=== PATIENT | female | born 1945 | race Caucasian/White ===

== ENCOUNTER 2024-10-31 09:04 | Day surgery (SDC) | payer MEDICARE, BC ==
[2024-10-31] MEDS ORDERED: Acetaminophen/Codeine 300-30 MG Tab PO PRN (09:15)
[2024-10-31] MEDS ORDERED: Ondansetron 4 MG/2 ML SDV IVPUSH PRN (09:15)
[2024-10-31] MEDS ORDERED: Acetaminophen 325 MG Tab PO PRN (09:15)
[2024-10-31] MEDS: Proparacaine 0.5% Ophth Soln 15 ML Bottle EYELF ONE ×2 (09:24→10:26)
[2024-10-31] MEDS: Moxifloxacin 0.5% Ophth Soln 3 ML Bottle EYELF ONE (09:25)
[2024-10-31] MEDS: Povidone-Iodine 5% Sterile Ophth Soln 30 ML Bottle EYELF ONE ×2 (09:26→10:26)
[2024-10-31] MEDS: Tropicamide 1% Ophth Soln 15 ML Bottle EYELF ONE (09:27)
[2024-10-31] MEDS: Phenylephrine 10% Ophth Soln 5 ML Bot EYELF ONE (09:27)
[2024-10-31] MEDS: Timolol Maleate 0.5% Ophth Soln 5 ML Bottle EYELF ONE (09:28)
[2024-10-31] MEDS: Cataract Ophth Solution EYELF ONE (09:29)
[2024-10-31] MEDS: Sodium Chloride 0.9% 10 ML Syringe FLUSH PRN (09:30)
[2024-10-31] MEDS: Apraclonidine 0.5% Ophth Soln 5 ML Bot EYELF ONE (10:27)
[2024-10-31] MEDS: Diclofenac Sodium 0.1% Ophth Soln 5 ML Bottle EYELF ONE (10:27)
[2024-10-31] MEDS: Dexamethasone/Neomycin/Polymyxin B Ophth Oint 3.5 GM Tube EYELF ONE (10:28)
[2024-10-31] MEDS: Lidocaine 1% 30 ML SDV ONE (10:29)
[2024-10-31] MEDS: VANCOmycin 500 MG SDV EYELF ONE (10:30)
[2024-10-31 11:24] VITALS: BP 136/82; PULSE 64
== END 2024-10-31 11:30 | disposition home or self-care (01) ==
LOC: DL.SDS 09:04
PROVIDERS: ATTEND Ophthalmology
DX: H25.812 Combined forms of age-related cataract, left eye (principal); E78.5 Hyperlipidemia, unspecified
CPT/HCPCS: A9270-GY; J3370; J3490

== ENCOUNTER 2024-11-21 08:43 | Day surgery (SDC) | payer MEDICARE, BC ==
[2024-11-21] MEDS ORDERED: Midazolam 1 MG/ML 2 ML SDV IV ONE (08:44)
[2024-11-21] MEDS ORDERED: Dexamethasone 4 MG/ML SDV IV ONE (08:44)
[2024-11-21] MEDS ORDERED: Sodium Chloride 0.9% 10 ML Syringe IV ONE (08:44)
[2024-11-21] MEDS ORDERED: Acetaminophen/Codeine 300-30 MG Tab PO PRN (09:00)
[2024-11-21] MEDS ORDERED: Ondansetron 4 MG/2 ML SDV IVPUSH PRN (09:00)
[2024-11-21] MEDS ORDERED: Acetaminophen 325 MG Tab PO PRN (09:00)
[2024-11-21] MEDS: Moxifloxacin 0.5% Ophth Soln 3 ML Bottle EYERT ONE (09:05)
[2024-11-21] MEDS: Proparacaine 0.5% Ophth Soln 15 ML Bottle EYERT ONE ×2 (09:05→09:51)
[2024-11-21] MEDS: Povidone-Iodine 5% Sterile Ophth Soln 30 ML Bottle EYERT ONE ×2 (09:06→09:52)
[2024-11-21] MEDS: Phenylephrine 10% Ophth Soln 5 ML Bot EYERT PRN (09:07)
[2024-11-21] MEDS: Tropicamide 1% Ophth Soln 15 ML Bottle EYERT ONE (09:07)
[2024-11-21] MEDS: Timolol Maleate 0.5% Ophth Soln 5 ML Bottle EYERT ONE (09:08)
[2024-11-21] MEDS: Cataract Ophth Solution EYERT ONE (09:09)
[2024-11-21] MEDS: Sodium Chloride 0.9% 10 ML Syringe FLUSH PRN (09:14)
[2024-11-21] MEDS: Apraclonidine 0.5% Ophth Soln 5 ML Bot EYERT ONE (09:53)
[2024-11-21] MEDS: Diclofenac Sodium 0.1% Ophth Soln 5 ML Bottle EYERT ONE (09:54)
[2024-11-21] MEDS: Lidocaine 1% 30 ML SDV INJECT ONE (09:55)
[2024-11-21] MEDS: Dexamethasone/Neomycin/Polymyxin B Ophth Oint 3.5 GM Tube EYERT ONE (09:55)
[2024-11-21] MEDS: VANCOmycin 500 MG SDV EYERT ONE (09:56)
[2024-11-21 12:35] VITALS: PULSE 60
[2024-11-21 12:37] VITALS: BP 125/64
== END 2024-11-21 11:11 | disposition home or self-care (01) ==
LOC: DL.SDS 08:43
PROVIDERS: ATTEND Ophthalmology
DX: H25.811 Combined forms of age-related cataract, right eye (principal)
CPT/HCPCS: A9270-GY; J1100; J2003; J2250; J3370; J3490